=== PATIENT | female | born 1970 | race African-American/Black ===

== ENCOUNTER 2016-12-24 19:40 | Inpatient (IN) | payer OTHER ==
--- NOTE | 2016-12-24 21:07 | HP ---
COWS - Scale Resting Pulse: 1= MA 81-100 Sweatin=Flushed/Facial Moisture Restless Observation: 3= Extraneous Movement Pupil Size: 2= Moderately Dilated Bone or Joint Aches: 2= Severe Diffuse Aches Runny Nose/ Eye Tearin= Runny Nose/Eyes GI Upset > 30mins: 3= Vomiting/Diarrhea Tremor Observation: 2= Slight Tremor Visible Yawning Observation: 2= >3x During Session Anxiety or Irritability: 2=Irritable/Anxious Goose Flesh Skin: 0=Smooth Skin COWS Score: 21 CIWA Score - CIWA Score Nausea/Vomitin Muscle Tremors: 3 Anxiety: 3 Agitation: 3 Paroxysmal Sweats: 2 Orientation: 0-Oriented Tacttile Disturbances: 2-Mild Itch/Numbness/Burn Auditory Disturbances: 2-Mild Harshness/Frighten Visual Disturbances: 2-Mild Sensitivity Headache: 2-Mild CIWA-Ar Total Score: 22 Admission ROS BHS - HPI Chief Complaint: I NEED HELP TO STOP USING HEROIN,ALCOHOL,COCAINE Allergies/Adverse Reactions: Allergies Allergy/AdvReac Type Severity Reaction Status Date / Time strawberry Allergy Intermediate Verified 12/24/16 21:07 metronidazole [From Flagyl] Allergy Verified 12/24/16 21:06 History of Present Illness: THIS 46 YEARS OLD FEMALE WITH HEROIN,COCAINE AND ALCOHOL DEPENDENCE,WITHDRAWAL SYMPTOM,LAST DETOX 2009 NOT COMPLETED HIV SINCE 2006 BIPOLAR DISORDER LONGEST PERIOD OF SOBRIETY 9 YEARS Exam Limitations: No Limitations - Ebola screening Have you traveled outside of the country in the last 21 days: No (N) Have you had contact with anyone from an Ebola affected area: No Do you have a fever: No - Review of Systems Constitutional: Chills, Diaphoresis, Loss of Appetite, Malaise, Night Sweats, Changes in sleep, Weakness EENT: reports: Nose Congestion Respiratory: reports: No Symptoms reported Cardiac: reports: Palpitations GI: reports: Diarrhea, Nausea, Vomiting, Abdominal cramping : reports: No Symptoms Reported Musculoskeletal: reports: Back Pain, Joint Pain, Muscle Pain Integumentary: reports: Dryness Neuro: reports: Headache, Tremors Endocrine: reports: No Symptoms Reported Hematology: reports: No Symptoms Reported Psychiatric: reports: other (BIPOLAR DISORDER) Patient History - Patient Medical History Hx Anemia: No Hx Asthma: Yes Hx Chronic Obstructive Pulmonary Disease (COPD): No Hx Cancer: No Hx Cardiac Disorders: No Hx Congestive Heart Failure: No Hx Hypertension: Yes (NON COMPLIANCE) Hx Hypercholesterolemia: No Hx Pacemaker: No HX Cerebrovascular Accident: No Hx Seizures: No Hx Dementia: No Hx Diabetes: No Hx Gastrointestinal Disorders: No Hx Liver Disease: No Hx Genitourinary Disorders: No Hx Sexually Transmitted Disorders: No Hx Renal Disease (ESRD): No Hx Thyroid Disease: No Hx Human Immunodeficiency Virus (HIV): Yes (SINCE 2006) Hx Hepatitis C: Yes (UNDER THE CARE OF PMD) Hx Depression: Yes Hx Suicide Attempt: Yes (OVERDOSE,CUTTER) Hx Bipolar Disorder: No Hx Schizophrenia: No Other Medical History: NO SUICIDAL,NO HOMICIDAL - Patient Surgical History Past Surgical History: Yes Other Surgical History: SURGERY FOR HYDRADINITIS SUPPURATIVE RIGHT IN 2014 AND 2015 - PPD History Previous Implant?: Yes Documented Results: Negative w/o proof Implanted On Prior [facility]mission?: Yes PPD to be Administered?: Yes - Reproductive History Patient is a Female of Child Bearing Age (11 -55 yrs old): Yes Patient : No - Smoking Cessation Smoking history: Current every day smoker Have you smoked in the past 12 months: Yes Aproximately how many cigarettes per day: 20 Cigars Per Day: 0 Hx Chewing Tobacco Use: No Initiated information on smoking cessation: Yes 'Breaking Loose' booklet given: 12/24/16 - Substance & Tx. History Hx Alcohol Use: Yes Hx Substance Use: Yes Substance Use Type: Alcohol, Cocaine, Heroin Hx Substance Use Treatment: Yes ([facility] 2009 NOT COMPLETED) - Substances Abused Heroin Route: Inhalation Frequency: Daily Amount used: 5 bags Age of first use: 44 Date of Last Use: 12/23/16 Alcohol Route: Oral Frequency: Daily Amount used: Beer 3 cans, Vodka 1 pint Age of first use: 13 Date of Last Use: 12/24/16 Cocaine Route: Smoking Frequency: 1-3 times last 30 days Amount used: $200 Age of first use: 15 Date of Last Use: 12/22/16 Family Disease History - Family Disease History Family Disease History: Other: Mother (ALCOHOL) Admission Physical Exam BHS - Vital Signs Vital Signs: Vital Signs Temperature 96.5 F L 12/24/16 21:25 Pulse Rate 77 12/24/16 21:25 Respiratory Rate 20 02/27/17 21:25 Blood Pressure 144/96 02/27/17 21:25 O2 Sat by Pulse Oximetry (%) - Physical General Appearance: Yes: Moderate Distress, Tremorous, Sweating, Anxious HEENTM: Yes: Nasal Congestion, Rhinorrhea Respiratory: Yes: Lungs Clear Neck: Yes: Within Normal Limits Breast: Yes: Breast Exam Deferred Cardiology: Yes: Within Normal Limits, Regular Rhythm, Regular Rate, S1, S2 Abdominal: Yes: Within Normal Limits, Normal Bowel Sounds, Non Tender, Flat, Soft Genitourinary: Yes: Within Normal Limits Back: Yes: Muscle Spasm Extremities: Yes: Tremors 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 NML intact, Fully Oriented, Alert, Motor Strength 5/5 Integumentary: Yes: Dry Lymphatic: Yes: Within Normal Limits - Diagnostic (1) Opioid dependence with withdrawal Current Visit: Yes Status: Acute (2) Alcohol dependence with uncomplicated withdrawal Current Visit: Yes Status: Acute (3) Cocaine dependence, uncomplicated Current Visit: Yes Status: Acute (4) History of HIV-I infection Current Visit: Yes Status: Acute (5) Bipolar disorder Current Visit: Yes Status: Acute (6) Hypertension Current Visit: Yes Status: Acute (7) Asthma Current Visit: Yes Status: Acute (8) Hepatitis C Current Visit: Yes Status: Acute (9) Arthritis Current Visit: Yes Status: Acute Cleared for Admission S - Detox or Rehab [facility] Level of Care: Medically Managed Detox Regimen/Protocol: Methadone/Librium
[2016-12-24 21:27] VITALS: BMI 23.7
[2016-12-24] MEDS ORDERED: MAGNESIUM CITRATE 300 ML BOTTLE PO PRN (21:33)
[2016-12-24] MEDS ORDERED: NICOTINE POLACRILEX 2 MG GUM BC PRN (21:33)
[2016-12-24] MEDS ORDERED: MENTHOL/PHENOL 1 EACH UD MM PRN (21:33)
[2016-12-24] MEDS ORDERED: chlordiazePOXIDE HCL 25 MG CAPSULE PO PRN (21:33)
[2016-12-24] MEDS ORDERED: LOPERAMIDE HCL 2 MG CAPSULE PO PRN (21:33)
[2016-12-24] MEDS ORDERED: IBUPROFEN 400 MG TABLET (FP) PO PRN (21:33)
[2016-12-24] MEDS ORDERED: P-EPHED 60MG/TRIPROLIDI 2.5MG TABLET PO PRN (21:33)
[2016-12-24] MEDS ORDERED: guaiFENesin/D-METHORPHAN HB 10 ML UNIT-DOSE CUPS PO PRN (21:33)
[2016-12-24] MEDS ORDERED: chlordiazePOXIDE HCL 25 MG CAPSULE PO ONE (21:33)
[2016-12-24] MEDS ORDERED: diphenhydrAMINE HCL 50 MG CAPSULE PO PRN (21:33)
[2016-12-24] MEDS ORDERED: MAGNESIUM HYDROX 2400MG/30ML ORAL SUSPENSION 30 ML CUP PO PRN (21:33)
[2016-12-24] MEDS ORDERED: ACETAMINOPHEN 325 MG TABLET (FP) PO PRN (21:33)
[2016-12-24] MEDS ORDERED: MAG HYDROX/AL HYDROX/SIMETH 30 ML UNIT-DOSE CUP PO PRN (21:33)
[2016-12-24] MEDS ORDERED: hydrOXYzine PAMOATE 25 MG CAPSULE (FP) PO PRN (21:33)
[2016-12-24] MEDS ORDERED: METHADONE HCL 10 MG TABLET (FOR DETOX USE ONLY) PO ONE ×2 (21:33→23:00)
[2016-12-24] MEDS: ATENOLOL 25 MG TABLET (FP) PO SCH (22:27)
[2016-12-24] MEDS: chlordiazePOXIDE HCL 25 MG CAPSULE PO SCH (22:42)
[2016-12-24] MEDS: NICOTINE 21 MG/24 HOURS TOPICAL PATCH TD SCH (22:42)
[2016-12-24] MEDS: THIAMINE HCL 100 MG TABLET (FP) PO SCH (22:43)
[2016-12-24 23:14] LABS: URINE APPEARANCE SLCLOUDY; URINE BILIRUBIN NEGATIVE (NEGATIVE); URINE BLOOD NEGATIVE (NEGATIVE); URINE COLOR YELLOW; URINE GLUCOSE (UA) NEGATIVE (NEGATIVE); URINE KETONE NEGATIVE (NEGATIVE); URINE NITRITE NEGATIVE (NEGATIVE); URINE PROTEIN NEGATIVE (NEGATIVE); URINE UROBILINOGEN 4.0 E.U/dl E.U./dl (0.2-1.0)
[2016-12-24 23:15] LABS: URINE LEUK ESTERASE 1+ (NEGATIVE)
[2016-12-24 23:19] LABS: URINE BACTERIA RARE /hpf (NONE SEEN); URINE HYALINE CAST 1 /lpf; URINE MUCUS RARE; URINE RBC 5 /hpf (0-3); URINE WBC 11 /hpf (3-5)
[2016-12-25] MEDS: chlordiazePOXIDE HCL 25 MG CAPSULE PO SCH ×4 (06:00→22:10)
[2016-12-25] MEDS ORDERED: PATIENT'S OWN MEDICATION (NON-FORMULARY) (Etravirine [Intelence -] 200 MG) PO SCH (09:00)
[2016-12-25] MEDS: cloNIDine HCL 0.1 MG TABLET PO SCH ×2 (09:31→22:10)
[2016-12-25] MEDS: ATENOLOL 25 MG TABLET (FP) PO SCH (09:31)
[2016-12-25] MEDS: PRENATAL VITAMINS W/ FOLIC ACID TABLET (FP) PO SCH (09:32)
--- NOTE | 2016-12-25 09:50 | PN ---
[facility] CIWA - CIWA Score Nausea/Vomitin-No Nausea/No Vomiting Muscle Tremors: 4-Moderate,w/Arms Extend Anxiety: 3 Agitation: 3 Paroxysmal Sweats: 3 Orientation: 0-Oriented Tacttile Disturbances: 0-None Auditory Disturbances: 0-None Visual Disturbances: 0-None Headache: 1-Very Mild CIWA-Ar Total Score: 14 BHS COWS - Scale Resting Pulse: 0= PA 80 or Below Sweatin=Flushed/Facial Moisture Restless Observation: 1= Difficult to Sit Still Pupil Size: 0= Normal to Room Light Bone or Joint Aches: 2= Severe Diffuse Aches Runny Nose/ Eye Tearin= Nasal Congestion GI Upset > 30mins: 0= None Tremor Observation of Outstretched Hands: 2= Slight Tremor Visible Yawning Observation: 2= >3x During Session Anxiety or Irritability: 2=Irritable/Anxious Goose Flesh Skin: 0=Smooth Skin COWS Score: 12 S Progress Note (SOAP) Subjective: irritable agitation anxiety sweats tired headache Objective: 12/25/16 09:49 Vital Signs Temperature 96.7 F L 12/25/16 06:24 Pulse Rate 78 12/25/16 06:24 Respiratory Rate 18 12/25/16 06:24 Blood Pressure 129/76 12/25/16 06:24 O2 Sat by Pulse Oximetry (%) Laboratory Tests 12/24/16 23:00 Urine Color Yellow Urine Appearance Slcloudy Urine pH 7.0 Ur Specific [place] 1.016 Urine Protein Negative Urine Glucose (UA) Negative Urine Ketones Negative Urine Blood Negative Urine Nitrite Negative Urine Bilirubin Negative Urine Urobilinogen 4.0 e.u/dl H Ur Leukocyte Esterase 1+ H Urine RBC 5 Urine WBC 11 Ur Epithelial Cells Few Urine Bacteria Rare Hyaline Casts 1 Urine Mucus Rare labs pending repeat u/a awake/alert lying in bed no acute distress Assessment: 12/25/16 09:49 withdrawal sx monitor BP Plan: continue detox increase fluids labs pending clonidine 0.1mg bid
[2016-12-25 09:52] LABS: MCH 33.5 pg (25.7-33.7); MCHC 33.7 g/dl (32.0-36.0); MEAN CELL VOLUME 99.3 fl (80-96); MEAN PLT VOLUME 8.2 fl (7.5-11.1); PLATELET COUNT 202 K/MM3 (134-434); RDW 12.6 % (11.6-15.6); WHITE BLOOD COUNT 3.3 K/mm3 (4.0-10.0)
[2016-12-25] MEDS ORDERED: METHADONE HCL 10 MG TABLET (FOR DETOX USE ONLY) PO SCH (10:00)
[2016-12-25 10:12] LABS: ALBUMIN 2.8 g/dl (3.4-5.0); ALK PHOS 88 U/L (45-117); ANION GAP 5 (8-16); BILIRUBIN,TOTAL 0.3 mg/dL (0.2-1.0); CALCIUM 8.1 mg/dL (8.5-10.1); CO2 31 mmol/L (21-32); CREATININE 0.7 mg/dL (0.55-1.02); GLUCOSE,RANDOM 91 mg/dL (74-106); SGOT/AST 52 U/L (15-37); SGPT/ALT 60 U/L (12-78)
[2016-12-25] MEDS: NICOTINE 21 MG/24 HOURS TOPICAL PATCH TD SCH (10:14)
[2016-12-25] MEDS: EMTRICITABINE PO SCH (10:16)
[2016-12-25] MEDS ORDERED: INFLUENZA VACCINE 45 MCG/0.5 ML (MDV 16-17) IM ONE (12:00)
--- NOTE | 2016-12-25 14:25 | CONSULT ---
[facility] Psychiatric Consult - Data Date of interview: 12/25/16 Admission source: [facility] Identifying data: First admission to [facility] for this 46 y/o AA female seeking detox treatment on for alcohol,cocaine and opioid dependence.Patient is ,a mother of four,domiciled,unemployed and supported on SSI benefits. Substance Abuse History: - Smoking Cessation. Smoking history: Current every day smoker. Have you smoked in the past 12 months: Yes. Aproximately how many cigarettes per day: 20. Cigars Per Day: 0. Hx Chewing Tobacco Use: No. Initiated information on smoking cessation: Yes. 'Breaking Loose' booklet given : 12/24/16. - Substance & Tx. History. Hx Alcohol Use: Yes. Hx Substance Use : Yes. Substance Use Type: Alcohol, Cocaine, Heroin. Hx Substance Use Treatment: Yes ([facility] IN 2009 NOT COMPLETED). - Substances Abused. Heroin. Route: Inhalation. Frequency: Daily. Amount used: 5 bags. Age of first use: 44. Date of Last Use: 12/23/16. Alcohol. Route: Oral. Frequency: Daily. Amount used: Beer 3 cans, Vodka 1 pint. Age of first use: 13. Date of Last Use : 12/24/16. Cocaine. Route: Smoking. Frequency: 1-3 times last 30 days. Amount used: $200. Age of first use: 15. Date of Last Use: 12/22/16. Patient confirms this pattern of substance use in my interview. Medical History: Bronchial asthma,hypertension,arthritis,hepatitis C,HIV infection since 2006,urinary tract infection (UTI) and a history of surgery for suppurative hydroadenitis (2014 and 2015). Psychiatric History: More than 10 psychiatric hospitalizations according to this patient.Diagnosed with Bipolar Disorder and PTSD.Prescribed zoloft and abilify but the patient does not recall the doses.Ms Treviño indicates that she is followed at the [facility],in the [place].She admits to a history of suicide attempts (self-mutilation and overdoses with medications). Physical/Sexual Abuse/Trauma History: Patient declines to discuss the topic of abuse/traumas. Mental Status Exam - Mental Status Exam Alert and Oriented to: Time, Place, Person Cognitive Function: Grossly Intact Patient Appearance: Unkempt, Disheveled Mood: Withdrawn Affect: Constricted Patient Behavior: Sedated, Fatigued, Cooperative (superficially) Speech Pattern: Clear, Delayed Voice Loudness: Moderately Soft/Quiet Thought Process: Goal Oriented Thought Disorder: Not Present Hallucinations: Denies Suicidal Ideation: Denies Homicidal Ideation: Denies Insight/Judgement: Poor Sleep: Well Appetite: Good Muscle strength/Tone: Normal Gait/Station: Normal Psychiatric Findings - Problem List (Cliff 1, 2,3) (1) Alcohol dependence with uncomplicated withdrawal Current Visit: Yes Status: Acute (2) Cocaine dependence, uncomplicated Current Visit: Yes Status: Acute (3) Opioid dependence with withdrawal Current Visit: Yes Status: Acute (4) Nicotine dependence Current Visit: Yes Status: Acute (5) Substance induced mood disorder Current Visit: Yes Status: Acute (6) Bipolar disorder Current Visit: Yes Status: Chronic Comment: History. (7) Arthritis Current Visit: Yes Status: Chronic (8) Asthma Current Visit: Yes Status: Chronic (9) Hepatitis C Current Visit: Yes Status: Chronic (10) History of HIV-I infection Current Visit: Yes Status: Chronic (11) Hypertension Current Visit: Yes Status: Chronic - Initial Treatment Plan Initial Treatment Plan: Psychoeducation (patient not receptive).Detoxification in progress.Medications : abilify 10 mg po hs + zoloft 10 mg po hs.Medications confirmed by pharmacy claims of 11/13/16 @ [facility].Zolpidem is reduced to 5 mg po hs prn.Side effects/benefits discussed with the patient.Patient agrees with this plan.Observation.
--- NOTE | 2016-12-25 15:28 | EKG ---
Test Reason : Blood Pressure : / mmHG Vent. Rate : 068 BPM Atrial Rate : 068 BPM P-R Int : 152 ms QRS Dur : 084 ms QT Int : 412 ms P-R-T Axes : 060 016 029 degrees QTc Int : 438 ms NORMAL SINUS RHYTHM NORMAL ECG WHEN COMPARED WITH ECG OF 24-DEC-2016 22:38, T WAVE INVERSION NO LONGER EVIDENT IN ANTERIOR LEADS Confirmed by SOLANGE DENTON MD ([id number]) on 12/25/2016 3:28:06 PM Referred By: Confirmed By:SOLANGE DENTON MD
--- NOTE | 2016-12-25 15:33 | EKG ---
Test Reason : Blood Pressure : / mmHG Vent. Rate : 071 BPM Atrial Rate : 071 BPM P-R Int : 142 ms QRS Dur : 080 ms QT Int : 390 ms P-R-T Axes : 060 -01 014 degrees QTc Int : 423 ms NORMAL SINUS RHYTHM SEPTAL INFARCT , AGE UNDETERMINED ABNORMAL ECG NO PREVIOUS ECGS AVAILABLE Confirmed by SOLANGE DENTON MD ([id number]) on 12/25/2016 3:33:06 PM Referred By: Confirmed By:SOLANGE DENTON MD
[2016-12-25] MEDS ORDERED: ZOLPIDEM TARTRATE 5 MG TABLET PO PRN (22:00)
[2016-12-25] MEDS: ARIPiprazole 10 MG TABLET PO SCH (22:10)
[2016-12-25] MEDS: THIAMINE HCL 100 MG TABLET (FP) PO SCH (22:10)
[2016-12-25] MEDS: PATIENT'S OWN MEDICATION (NON-FORMULARY) (Etravirine [Intelence -] 200 MG) PO SCH (22:11)
[2016-12-26] MEDS: chlordiazePOXIDE HCL 25 MG CAPSULE PO SCH ×3 (06:21→17:01)
--- NOTE | 2016-12-26 09:49 | PN ---
BHS Progress Note (SOAP) Subjective: sweats, anxious , wats to go to ex boyfriends in [place]. Objective: 12/26/16 09:48 Vital Signs Temperature 97.3 F L 12/26/16 06:21 Pulse Rate 65 12/26/16 06:21 Respiratory Rate 16 12/26/16 06:21 Blood Pressure 129/78 12/26/16 06:21 O2 Sat by Pulse Oximetry (%) Laboratory Tests 12/24/16 12/24/16 12/25/16 07:00 23:00 07:00 WBC 3.3 L RBC 3.91 Hgb 13.1 Hct 38.8 MCV 99.3 H MCHC 33.7 RDW 12.6 Plt Count 202 MPV 8.2 Sodium Potassium Chloride Carbon Dioxide Anion Gap BUN Creatinine Creat Clearance w eGFR Random Glucose Calcium Total Bilirubin AST ALT Alkaline Phosphatase Total Protein Albumin Urine Color Yellow Urine Appearance Slcloudy Urine pH 7.0 Ur Specific [place] 1.016 Urine Protein Negative Urine Glucose (UA) Negative Urine Ketones Negative Urine Blood Negative Urine Nitrite Negative Urine Bilirubin Negative Urine Urobilinogen 4.0 e.u/dl H Ur Leukocyte Esterase 1+ H Urine RBC 5 Urine WBC 11 Ur Epithelial Cells Few Urine Bacteria Rare Hyaline Casts 1 Urine Mucus Rare RPR Titer Hepatitis C Antibody >11.0 H 12/25/16 12/25/16 07:00 07:00 WBC RBC Hgb Hct MCV MCHC RDW Plt Count MPV Sodium 141 Potassium 3.8 Chloride 105 Carbon Dioxide 31 Anion Gap 5 L BUN 6 L Creatinine 0.7 Creat Clearance w eGFR > 60 Random Glucose 91 Calcium 8.1 L Total Bilirubin 0.3 AST 52 H ALT 60 Alkaline Phosphatase 88 Total Protein 7.0 Albumin 2.8 L Urine Color Urine Appearance Urine pH Ur Specific [place] Urine Protein Urine Glucose (UA) Urine Ketones Urine Blood Urine Nitrite Urine Bilirubin Urine Urobilinogen Ur Leukocyte Esterase Urine RBC Urine WBC Ur Epithelial Cells Urine Bacteria Hyaline Casts Urine Mucus RPR Titer Nonreactive Hepatitis C Antibody 12/27/16 09:12 pt aox3 , anxious Assessment: 12/26/16 09:48 withdrawal sx;s 12/27/16 09:13 Plan: cont. detox increase fluids vistaril prn
[2016-12-26] MEDS: SERTRALINE HCL 50 MG TABLET (FP) PO SCH (10:08)
[2016-12-26] MEDS: cloNIDine HCL 0.1 MG TABLET PO SCH ×2 (10:08→22:09)
[2016-12-26] MEDS: METHADONE HCL 5 MG TABLET (FOR DETOX USE ONLY) PO SCH (10:08)
[2016-12-26] MEDS: ATENOLOL 25 MG TABLET (FP) PO SCH (10:08)
[2016-12-26] MEDS: PRENATAL VITAMINS W/ FOLIC ACID TABLET (FP) PO SCH (10:08)
[2016-12-26] MEDS: EMTRICITABINE PO SCH (10:09)
[2016-12-26] MEDS: PATIENT'S OWN MEDICATION (NON-FORMULARY) (Etravirine [Intelence -] 200 MG) PO SCH ×2 (10:09→22:10)
[2016-12-26] MEDS: NICOTINE 21 MG/24 HOURS TOPICAL PATCH TD SCH (10:11)
[2016-12-26] MEDS: chlordiazePOXIDE 5 MG CAPSULE PO SCH (22:09)
[2016-12-26] MEDS: THIAMINE HCL 100 MG TABLET (FP) PO SCH (22:09)
[2016-12-26] MEDS: ARIPiprazole 10 MG TABLET PO SCH (22:09)
[2016-12-27] MEDS: chlordiazePOXIDE 5 MG CAPSULE PO SCH ×2 (05:55→10:13)
[2016-12-27 06:14] VITALS: TEMP 97.3
--- NOTE | 2016-12-27 09:16 | PN ---
BHS Progress Note (SOAP) Subjective: wants to go to ex boyfriends Objective: 12/27/16 09:15 Vital Signs Temperature 97.3 F L 12/27/16 06:13 Pulse Rate 66 12/27/16 06:13 Respiratory Rate 16 12/27/16 06:13 Blood Pressure 133/81 12/27/16 06:13 O2 Sat by Pulse Oximetry (%) Laboratory Tests 12/24/16 12/24/16 12/25/16 07:00 23:00 07:00 WBC 3.3 L RBC 3.91 Hgb 13.1 Hct 38.8 MCV 99.3 H MCHC 33.7 RDW 12.6 Plt Count 202 MPV 8.2 Sodium Potassium Chloride Carbon Dioxide Anion Gap BUN Creatinine Creat Clearance w eGFR Random Glucose Calcium Total Bilirubin AST ALT Alkaline Phosphatase Total Protein Albumin Urine Color Yellow Urine Appearance Slcloudy Urine pH 7.0 Ur Specific [place] 1.016 Urine Protein Negative Urine Glucose (UA) Negative Urine Ketones Negative Urine Blood Negative Urine Nitrite Negative Urine Bilirubin Negative Urine Urobilinogen 4.0 e.u/dl H Ur Leukocyte Esterase 1+ H Urine RBC 5 Urine WBC 11 Ur Epithelial Cells Few Urine Bacteria Rare Hyaline Casts 1 Urine Mucus Rare RPR Titer Hepatitis C Antibody >11.0 H 12/25/16 12/25/16 07:00 07:00 WBC RBC Hgb Hct MCV MCHC RDW Plt Count MPV Sodium 141 Potassium 3.8 Chloride 105 Carbon Dioxide 31 Anion Gap 5 L BUN 6 L Creatinine 0.7 Creat Clearance w eGFR > 60 Random Glucose 91 Calcium 8.1 L Total Bilirubin 0.3 AST 52 H ALT 60 Alkaline Phosphatase 88 Total Protein 7.0 Albumin 2.8 L Urine Color Urine Appearance Urine pH Ur Specific [place] Urine Protein Urine Glucose (UA) Urine Ketones Urine Blood Urine Nitrite Urine Bilirubin Urine Urobilinogen Ur Leukocyte Esterase Urine RBC Urine WBC Ur Epithelial Cells Urine Bacteria Hyaline Casts Urine Mucus RPR Titer Nonreactive Hepatitis C Antibody pt aox3 , anxious Assessment: 12/27/16 09:15 withdrawl sx's 12/27/16 09:41 Plan: cont. detox increase fluids
[2016-12-27 09:44] VITALS: BP 124/85; PULSE 79
[2016-12-27] MEDS: PATIENT'S OWN MEDICATION (NON-FORMULARY) (Etravirine [Intelence -] 200 MG) PO SCH (10:00)
[2016-12-27] MEDS: ATENOLOL 25 MG TABLET (FP) PO SCH (10:12)
[2016-12-27] MEDS: PRENATAL VITAMINS W/ FOLIC ACID TABLET (FP) PO SCH (10:12)
[2016-12-27] MEDS: METHADONE HCL 5 MG TABLET (FOR DETOX USE ONLY) PO SCH (10:12)
[2016-12-27] MEDS: cloNIDine HCL 0.1 MG TABLET PO SCH (10:12)
[2016-12-27] MEDS: SERTRALINE HCL 50 MG TABLET (FP) PO SCH (10:12)
[2016-12-27] MEDS: EMTRICITABINE PO SCH (10:13)
[2016-12-27] MEDS: NICOTINE 21 MG/24 HOURS TOPICAL PATCH TD SCH (10:14)
--- NOTE | 2016-12-27 10:36 | DS ---
[facility] Detox Discharge Summary Admission Date: 12/24/16 Discharge Date: 12/27/16 - History Present History: Alcohol Dependence, Cocaine Dependence, Opioid Dependence - Physical Exam Results Vital Signs: Vital Signs Temperature 97.3 F L 12/27/16 09:43 Pulse Rate 79 12/27/16 09:43 Respiratory Rate 20 12/27/16 09:43 Blood Pressure 124/85 12/27/16 09:43 O2 Sat by Pulse Oximetry (%) - Medication Discharge Medications: Ambulatory Orders Aripiprazole [Abilify -] 10 mg PO DAILY 12/24/16 Atenolol [Tenormin -] 25 mg PO DAILY 12/24/16 Dolutegravir Sodium [Tivicay] 50 mg PO DAILY 12/24/16 Emtricitabine [Emtriva -] 200 mg PO DAILY 12/24/16 Etravirine [Intelence -] 200 mg PO BID 12/24/16 Sertraline HCl [Zoloft -] 50 mg PO DAILY 12/24/16 Zolpidem Tartrate [Ambien] 10 mg PO HS 12/24/16 Aripiprazole [Abilify -] 10 mg PO DAILY #30 tablet 12/25/16 Sertraline HCl [Zoloft -] 50 mg PO DAILY #30 tablet 12/25/16 - Diagnosis (1) Alcohol dependence with uncomplicated withdrawal Current Visit: Yes Status: Chronic (2) Cocaine dependence, uncomplicated Current Visit: No Status: Acute (3) Nicotine dependence Current Visit: Yes Status: Chronic Qualifiers: Nicotine product type: cigarettes Substance use status: uncomplicated Qualified Code(s): F17.210 - Nicotine dependence, cigarettes, uncomplicated (4) Opioid dependence with withdrawal Current Visit: Yes Status: Chronic (5) Asthma Current Visit: Yes Status: Chronic Qualifiers: Asthma severity: mild intermittent (6) Bipolar disorder Current Visit: Yes Status: Chronic Qualifiers: Current episode severity: unspecified (7) Hepatitis C Current Visit: Yes Status: Chronic - AMA Did Patient Leave Against Medical Advice: Yes (needs to go to a .)
[2016-12-27] MEDS ORDERED: chlordiazePOXIDE HCL 10 MG CAPSULE PO SCH (23:00)
[2016-12-28 06:06] LABS: HCV LOG 10 5.885 (.)
[2016-12-28] MEDS ORDERED: METHADONE HCL 10 MG TABLET (FOR DETOX USE ONLY) PO SCH (10:00)
[2016-12-29] MEDS ORDERED: METHADONE HCL 5 MG TABLET (FOR DETOX USE ONLY) PO SCH (06:00)
== END 2016-12-27 10:55 | disposition left against medical advice (07) | DRG 770 ==
LOC: YASAS 19:40 → Y6N 20:56
PROVIDERS: ADMIT Internal Medicine Addiction Medicine; ATTEND Internal Medicine Addiction Medicine
DX: F11.23 Opioid dependence with withdrawal (principal); F10.230 Alcohol dependence with withdrawal, uncomplicated; F14.20 Cocaine dependence, uncomplicated; F17.210 Nicotine dependence, cigarettes, uncomplicated; F19.24 Other psychoactive substance dependence with psychoactive substance-induced mood disorder; F32.9 Major depressive disorder, single episode, unspecified; I10 Essential (primary) hypertension; J45.20 Mild intermittent asthma, uncomplicated; B18.2 Chronic viral hepatitis C; M12.9 Arthropathy, unspecified; Z21 Asymptomatic human immunodeficiency virus [HIV] infection status
CPT/HCPCS: 36415; 80053; 81003; 81015; 85027; 86593; 87522; 93005; 93010